=== PATIENT | male | born 1965 | race Hispanic/Latino ===

== ENCOUNTER 2019-07-16 23:23 | Emergency (ER) | payer OTHER ==
[2019-07-16] MEDS ORDERED: CLINDAMYCIN HCL 150 MG CAP ONE (23:39)
[2019-07-16] MEDS ORDERED: LIDOCAINE HCL-MPF 1% 2ML VIAL ONE (23:40)
[2019-07-16] MEDS ORDERED: LIDOCAINE HCL 2% JELLY 5 ML ONE (23:40)
[2019-07-16] MEDS ORDERED: CEFTRIAXONE SODIUM 1 GM ONE (23:41)
[2019-07-16] MEDS ORDERED: KETOROLAC TROMETHAMINE 60 MG/2 ML VIAL ONE (23:41)
== END 2019-07-16 23:56 | disposition home or self-care (01) ==
LOC: EDH 23:23
DX: K04.7 Periapical abscess without sinus (principal); K08.89 Other specified disorders of teeth and supporting structures; Z88.0 Allergy status to penicillin; Z91.018 Allergy to other foods; Z72.0 Tobacco use
CPT/HCPCS: 96372 ×2; 99284; J0696; J1885; J3490